=== PATIENT | male | born 1950 | race Native Hawaiian/Other Pacific Islander ===

== ENCOUNTER 2020-03-07 07:51 | Outpatient (CLI) | payer OTHER | END 2020-03-07 19:15 | disposition home or self-care (01) | LOC: CT 07:51 → RESP 09:00 → CT 19:15 | DX: J44.9 Chronic obstructive pulmonary disease, unspecified (principal); R91.1 Solitary pulmonary nodule; R94.31 Abnormal electrocardiogram [ECG] [EKG]; I20.8 Other forms of angina pectoris; R06.02 Shortness of breath | CPT/HCPCS: 36415; 82565; 84520; Q9963 ==

== ENCOUNTER 2020-09-26 11:17 | Day surgery (SDC) | payer OTHER ==
[2020-09-19 10:08] LABS: PLATELET COUNT 226 K/uL (142-355)
[2020-09-19 10:20] LABS: POTASSIUM 5.2 mmol/L (3.6-5.2)
== END 2020-09-26 15:10 | disposition home or self-care (01) ==
LOC: OR 11:17
PROVIDERS: ATTEND Internal Medicine Gastroenterology
PROC: 0DBL8ZZ Excision of Transverse Colon, Via Natural or Artificial Opening Endoscopic (ICD-10-PCS; principal; 2020-09-26)
PROC: 0DBM8ZZ Excision of Descending Colon, Via Natural or Artificial Opening Endoscopic (ICD-10-PCS; 2020-09-26)
DX: D12.4 Benign neoplasm of descending colon (principal); D12.3 Benign neoplasm of transverse colon; K57.30 Diverticulosis of large intestine without perforation or abscess without bleeding; K64.8 Other hemorrhoids; K92.1 Melena; Z86.010 Personal history of colon polyps; R19.5 Other fecal abnormalities
CPT/HCPCS: 80053; 85027; J2704; J7120